=== PATIENT | female | born 1980 | race Caucasian/White ===

== ENCOUNTER 2016-03-24 23:00 | Inpatient (IN) | payer BC ==
[2016-03-25] MEDS ORDERED: TERBUTALINE SULFATE 1 MG/ML VIAL IV PRN (00:12)
[2016-03-25] MEDS ORDERED: OXYTOCIN/RINGERS LACTATE 1,000 ML IV PRN (00:12)
[2016-03-25] MEDS ORDERED: LIDOCAINE 1% 30 ML SDV SC PRN (00:12)
[2016-03-25] MEDS ORDERED: MINERAL OIL 60 ML OIL TP PRN (00:12)
[2016-03-25 00:53] LABS: % IMMATURE GRANULYOCYTES 0.7 % (0.0-1.1); ABSOLUTE IMMATURE GRANULOCYTES 0.13 10^3/uL (0.00-0.10); ADD DIFF? NO; ADD MORPH? NO; ADD SCAN? NO; ATYPICAL LYMPHOCYTE FLAG 0 (0-99); FRAGMENT RBC FLAG 0 (0-99); HEMATOCRIT 39.9 % (38.0-47.0); HEMOGLOBIN 13.8 g/dL (12.6-16.3); LEFT SHIFT FLG 0 (0-99); LIPEMIA HEMOLYSIS FLAG 90 (0-99); MEAN CELL HEMOGLOBIN 29.2 pg (27.9-34.1); MEAN CELL HEMOGLOBIN CONCENTR. 34.6 g/dL (32.4-36.7); MEAN CELL VOLUME 84.5 fL (81.5-99.8); MEAN PLATELET VOLUME 11.2 fL (8.7-11.7); PLATELET CLUMPS FLAG 0 (0-99); PLATELET COUNT 196 10^3/uL (150-400); RED BLOOD CELL COUNT 4.72 10^6/uL (4.18-5.33); RED CELL DISTRIBUTION WIDTH 13.8 % (11.5-15.2)
[2016-03-25] MEDS ORDERED: ceFAZolin 2 GM/DEXTROSE 100 ML IV ONE (01:00)
[2016-03-25] MEDS: LR 1,000 ML IV PRN ×2 (01:15→05:54)
[2016-03-25 01:39] LABS: ALANINE AMINOTRANSFERASE 29 IU/L (9-52); ASPARTATE AMINOTRANSFERASE 22 IU/L (14-46); BILIRUBIN,TOTAL 0.4 mg/dL (0.1-1.4); BILIRUBIN-CONJUGATED 0.3 mg/dL (0.0-0.5); BILIRUBIN-UNCONJUGATED 0.1 mg/dL (0.0-1.1); CREATININE 0.6 mg/dL (0.6-1.0); GLOMERULAR FILTRATION RATE > 60; LACTATE DEHYDROGENASE 548 IU/L (313-618); URIC ACID 4.5 mg/dL (2.5-6.8)
[2016-03-25] MEDS ORDERED: BUPIVACAINE 0.25% 30 ML SDV SC ONE (04:27)
[2016-03-25] MEDS ORDERED: fentaNYL 2MCG/ML/BUP 0.1% RTU 100 ML EP SCH (04:30)
[2016-03-25] MEDS ORDERED: PHENYLEPHRINE HCL 100 MCG/ML SYR IVP PRN (04:30)
[2016-03-25] MEDS ORDERED: ONDANSETRON 4 MG/2 ML VIAL IVP PRN (04:30)
[2016-03-25] MEDS ORDERED: NALOXONE HCL 0.4 MG/ML INJ IVP PRN (04:30)
[2016-03-25] MEDS ORDERED: BUPIVACAINE 0.25% 30 ML SDV ONE (04:41)
[2016-03-25] MEDS ORDERED: fentaNYL 100 MCG/2 ML INJ ONE (04:42)
[2016-03-25] MEDS ORDERED: fentaNYL 2MCG/ML/BUP 0.1% RTU 100 ML BAG EP ONE (04:42)
[2016-03-25] MEDS ORDERED: PHENYLEPHRINE HCL 100 MCG/ML SYR ONE ×2 (04:43→13:55)
[2016-03-25] MEDS ORDERED: fentaNYL 100 MCG/2 ML INJ IVP ONE (05:00)
[2016-03-25] MEDS ORDERED: LR 500 ML IV SCH (05:00)
--- NOTE | 2016-03-25 07:34 | OBPROG ---
OBG Progress Note Assessment/Plan: Assessment: 35 y/o at 40+6 weeks EGA admitted with SROM and in active labor Plan: 1) status over all reassuring - mild variables w/ pushing 2) Labor - progressed well now to C/C/+1. Anterior lip from 0630 is gone. Baby 's position has changed from ROT to direct OP. Did a trial push, and minimal decent noted, likely from dense epidural. Will allow to labor down for an hour and then will reassess and like start pushing. Will have CNM cover while I'm in the OR. 3) GBS + on ancef. 4) Pain relieved well w/ UZIEL 03/25/16 07:30 Subjective: Pt comfortable with UZIEL. She reports feeling a little pressure with contractions. Objective: 03/24/16 23:50 03/24/16 23:50 Patient ABO/Rh A POSITIVE 03/24/16 23:50 Uric Acid 4.5 mg/dL (2.5-6.8) 03/24/16 23:50 Total Bilirubin 0.4 mg/dL (0.1-1.4) 03/24/16 23:50 Conjugated Bilirubin 0.3 mg/dL (0.0-0.5) 03/24/16 23:50 Unconjugated Bilirubin 0.1 mg/dL (0.0-1.1) 03/24/16 23:50 AST 22 IU/L (14-46) 03/24/16 23:50 ALT 29 IU/L (9-52) 03/24/16 23:50 Lactate Dehydrogenase 548 IU/L (313-618) 03/24/16 23:50 - SVE Dilation (cm): 10 Effacement (%): 100 Station: +1 Current Contraction Pattern: Regular FHR (bpm): 145 FHR Pattern Variability: Moderate FHR Category: 2 (variable decel w/ pushing attempt) Membranes: SROM Amniotic Fluid Color: Clear ICD10 Worksheet Patient Problems: Problems Problem Status Diagnosed Labor established Acute - ICD10 Problem Qualifiers (1) Labor established
--- NOTE | 2016-03-25 07:41 | GHP ---
[f rep st] HISTORY AND PHYSICAL DATE OF ADMISSION: 03/24/2016 CHIEF COMPLAINT: Leakage of fluid. HISTORY OF PRESENT ILLNESS: The patient is a 35-year-old, 1, para 0, female at 40 weeks and 6 days on admission with complaints of spontaneous leakage of fluid that started at 8:30 p.m. on the day of admission. She reports the fluid was clear. She was admitted to Labor and Delivery and monit ored expectantly by our certified nurse wine pasteurizer, Jana Perez. The patient's cervix was check ed around 2:45 and noted to be 5-6 cm dilated, 80% effaced, and -1 station. The patient continued to labor in the tub and progressed to 6-7 cm at 4:15 a.m. She requested an epidural at that time, and continuous monitoring was initiated. I was contacted at 5:30 to come into Labor and delivery as the patient had progressed to 8 cm. Upon my arrival to Labor and delivery, it was apparent she had some decelerations noted with hypotension t hat occurred after placement of her epidural as well as 1 dose of fentanyl. The heart rate sta tus is currently reassuring with a baseline of 140s, moderate variability present and spontaneous acc elerations. Her cervix was checked and noted to have a really soft anterior lip, completely effaced, and 0 to +1 station with the baby in ROT position. PAST MEDICAL HISTORY: Migraines. PAST SURGICAL HISTORY: Delmar teeth. ALLERGIES: Penicillin. SOCIAL HISTORY: Patient is and reports occasional marijuana use and alcohol use during the p regnancy with a frequency of half a glass a wine once a month. MEDICATIONS: vitamin, DHA. OB PROBLEM LIST: 1. Vaccines: Status post the Tdap vaccine. Declined the flu vaccine. 2. Genetic screening: Sequential screen was normal, NT ultrasound normal, declined CF screening, no rmal anatomy scan. 3. GBS bacteria: Penicillin allergy with hives. The urine culture showed the GBS was pansensitive; however, repeat sensitivities at 35 weeks showed it was resistant to clindamycin so, Ancef was given since her allergy was only a rash. LABS: Blood type A positive, antibody screen negative, varicella immune, rubella immune, RPR nonreac tive, urine culture negative, hepatitis B surface antigen negative, HIV negative, 1-hour GTT normal, 28-week hematocrit 37, and GBS positive. heart rate tracing baseline 145-150 with moderate variability and accelerations present. Occas ional mild variable deceleration noted. Excellent scalp stim with accelerations in the 180s noted wi th her vaginal exam. Prior to my arrival, the patient did have a prolonged deceleration to the 80s f or 2-1/2 minutes after administration of her epidural at 5:23. She had one more recurrent late decel eration at 5:34 for 2 minutes. After position changes, the decelerations resolved and currently she is not showing any decelerations. Tocometer contractions every 45 minutes. PHYSICAL EXAMINATION: GENERAL: Patient is very sleepy and comfortable with her epidural. CHEST: C lear to auscultation bilaterally. CARDIOVASCULAR: Regular rate and rhythm. ABDOMEN: Gravid and no ntender. CERVIX: Soft anterior lip, completely effaced and 0 station. ASSESSMENT: Patient is a 35-year-old, 1, para 0, female at 40 weeks and 6 days now estimated gestational age in active labor with spontaneous rupture of membranes. PLAN: 1. status is currently reassuring. 2. Labor has been progressing well spontaneously; however, currently due to the patient's status wit h her epidural just placed and inability to feel any pressure or contractions in addition to the baby 's occiput transverse position, we will allow for more passive descent before we initiate pushing. 3. Pain well controlled currently with epidural. 4. GBS positive, status post Ancef. /[id number]/MODL
--- NOTE | 2016-03-25 08:41 | OBPROG ---
OBG Progress Note Assessment/Plan: Assessment: 35 y.o. at 40 6/7 weeks with SROM and active labor. Adequate progression of labor. GBS positive. VSS- afebrile. NST- reactive CAT I. Plan: Will begin actively pushing and anticipate . GBS positive with prophylaxis started with Ancef 2 gm, then 1 gm Q8H. 03/25/16 08:37 Subjective: Resting comfortably in bed with UZIEL infusing. and metal fitters and machinists present at bedside and supportive. VSS- afebrile. NST- reactive CAT I. Objective: 03/24/16 23:50 03/24/16 23:50 Patient ABO/Rh A POSITIVE 03/24/16 23:50 Uric Acid 4.5 mg/dL (2.5-6.8) 03/24/16 23:50 Total Bilirubin 0.4 mg/dL (0.1-1.4) 03/24/16 23:50 Conjugated Bilirubin 0.3 mg/dL (0.0-0.5) 03/24/16 23:50 Unconjugated Bilirubin 0.1 mg/dL (0.0-1.1) 03/24/16 23:50 AST 22 IU/L (14-46) 03/24/16 23:50 ALT 29 IU/L (9-52) 03/24/16 23:50 Lactate Dehydrogenase 548 IU/L (313-618) 03/24/16 23:50 - SVE Dilation (cm): 10 Effacement (%): 100 Station: +1 Current Contraction Pattern: Regular FHR (bpm): 140 FHR Pattern Variability: Moderate FHR Category: 1 Membranes: SROM Amniotic Fluid Color: Clear - Physical Exam General Appearance: WD/WN, alert, no apparent distress Estimated Weight: 9990-1022 EENT: normal ENT inspection Neck: non-tender, full range of motion Respiratory: lungs clear, normal breath sounds Cardiac/Chest: regular rate, rhythm Abdomen: non-tender, soft Membranes: SROM Amniotic Fluid Color: clear Extremities: normal range of motion, non-tender, normal inspection Back: Normal inspection Skin: normal color, warm/dry Neuro/Psych: alert, normal mood/affect, oriented x 3 ICD10 Worksheet Patient Problems: Problems Problem Status Diagnosed Labor established Acute
--- NOTE | 2016-03-25 10:06 | OBPROG ---
OBG Progress Note Assessment/Plan: Assessment: 35 y/o at 40+6 weeks EGA admitted with SROM and in active labor Plan: 1) status over all reassuring - mild variables w/ pushing, moderate variability present, baseline 150-160's with intermittent period in the 170s. Over all reassuring. Discussed how the fluid is now meconium stained. Discussed risk of intervening sooner if needed for any sign of NRFHT. status currently reassuring. 2) Labor - Pt pushing, just started about 0930, still in direct OP position. Pushed with the patient with good efforts noted. Will reevaluate in one hour. 3) GBS + on ancef. 4) Pain relieved well w/ UZIEL 03/25/16 10:03 Subjective: Pt pushing Objective: 03/24/16 23:50 03/24/16 23:50 Patient ABO/Rh A POSITIVE 03/24/16 23:50 Uric Acid 4.5 mg/dL (2.5-6.8) 03/24/16 23:50 Total Bilirubin 0.4 mg/dL (0.1-1.4) 03/24/16 23:50 Conjugated Bilirubin 0.3 mg/dL (0.0-0.5) 03/24/16 23:50 Unconjugated Bilirubin 0.1 mg/dL (0.0-1.1) 03/24/16 23:50 AST 22 IU/L (14-46) 03/24/16 23:50 ALT 29 IU/L (9-52) 03/24/16 23:50 Lactate Dehydrogenase 548 IU/L (313-618) 03/24/16 23:50 - SVE Dilation (cm): 10 Effacement (%): 100 Station: +1 - Physical Exam Estimated Weight: 1176-1976 ICD10 Worksheet Patient Problems: Problems Problem Status Diagnosed Labor established Acute - ICD10 Problem Qualifiers (1) Labor established
[2016-03-25] MEDS ORDERED: LIDOCAINE 2% 5 ML SDV ONE (12:58)
[2016-03-25] MEDS ORDERED: FAMOTIDINE 20 MG/2 ML SDV IVP ONE ×2 (13:07→13:30)
[2016-03-25] MEDS ORDERED: METOCLOPRAMIDE 10 MG/2 ML VIAL IVP ONE (13:07)
--- NOTE | 2016-03-25 13:11 | OBPROG ---
OBG Progress Note Assessment/Plan: Assessment: 35 y/o at 40+6 weeks EGA admitted with SROM and in active labor Plan: 1) status: concerning w/ tachycardia and now a late decel. Will move towards delivery now. 2) Labor - Arrest of descent. Extensive counseling done about 30 minutes ago w / option of vacuum extraction vs. primary section reviewed. All r/b/i/ a of each option reviewed, and she desires to proceed with C/S. Consent obtained. Will now proceed more urgently due to decels noted. 3) GBS + on ancef. 4) Pain relieved well w/ UZIEL 03/25/16 13:11 Subjective: Pt exhausted with pushing. Objective: 03/24/16 23:50 03/24/16 23:50 Patient ABO/Rh A POSITIVE 03/24/16 23:50 Uric Acid 4.5 mg/dL (2.5-6.8) 03/24/16 23:50 Total Bilirubin 0.4 mg/dL (0.1-1.4) 03/24/16 23:50 Conjugated Bilirubin 0.3 mg/dL (0.0-0.5) 03/24/16 23:50 Unconjugated Bilirubin 0.1 mg/dL (0.0-1.1) 03/24/16 23:50 AST 22 IU/L (14-46) 03/24/16 23:50 ALT 29 IU/L (9-52) 03/24/16 23:50 Lactate Dehydrogenase 548 IU/L (313-618) 03/24/16 23:50 - SVE Dilation (cm): 10 Effacement (%): 100 Station: +2 Current Contraction Pattern: Regular FHR (bpm): 150 FHR Pattern Variability: Minimal FHR Category: 2 - Physical Exam Estimated Weight: 1043-4154 ICD10 Worksheet Patient Problems: Problems Problem Status Diagnosed Labor established Acute - ICD10 Problem Qualifiers (1) Labor established
[2016-03-25] MEDS ORDERED: LIDO/EPI 2% **for epidural** 20 ML SDV ONE (13:12)
[2016-03-25] MEDS ORDERED: DEXAMETHASONE 4 MG/ML VIAL ONE (13:12)
[2016-03-25] MEDS ORDERED: ONDANSETRON 4 MG/2 ML VIAL ONE ×2 (13:12→14:08)
[2016-03-25] MEDS ORDERED: OXYTOCIN 100 UNITS/10 ML VIAL ONE (13:13)
[2016-03-25] MEDS ORDERED: CITRIC ACID/SODIUM CITRATE 30 ML UDCUP ONE (13:15)
[2016-03-25] MEDS ORDERED: FAMOTIDINE 20 MG/NACL/50 ML BAG IV ONE (13:18)
[2016-03-25] MEDS ORDERED: FAMOTIDINE 20 MG/NACL 50 ML IV ONE (13:30)
[2016-03-25] MEDS ORDERED: morphINE PF 5 MG/10 ML INJ ONE (13:49)
[2016-03-25] MEDS ORDERED: epHEDrine SULFATE 10 MG/ML SYR ONE (14:14)
[2016-03-25] MEDS ORDERED: ACETAMINOPHEN 325 MG TAB PO PRN (14:24)
[2016-03-25] MEDS ORDERED: PROMETHAZINE HCL 25 MG/ML VIAL IVP PRN (14:24)
--- NOTE | 2016-03-25 14:24 | OBPROC ---
- Delivery Pre-op Diagnoses: Failure to progress Post-op Diagnoses: Failure to progress. Meconium stained fluid. Procedure: Primary Surgeon: Ivania Feng Press Reader: Jana Perez Anesthesiologist: Dung Wiggins Wheel Fitter/CONSULTING PROJECT DIRECTOR: Marybeth Meredith Anesthesia: Epidural Complications: None Specimen(s)/Path: Placenta IV Fluid (ml): 2,000 EBL: 1000 - Info A Delivery Date: 03/25/16 Delivery Time: 13:47 Sex of : Male [place] Weight (gm): 3060 kg Score (1 Min): 8 Score (5 Min): 9
[2016-03-25] MEDS ORDERED: MAGNESIUM HYDROXIDE 30 ML UDCUP PO PRN (14:26)
[2016-03-25] MEDS ORDERED: LACTULOSE 20 GM/30 ML UDCUP PO PRN (14:26)
[2016-03-25] MEDS ORDERED: POLYETHYLENE GLYCOL 3350 17 GM PKT PO PRN (14:26)
[2016-03-25] MEDS ORDERED: BISACODYL 10 MG SUPP PR PRN (14:26)
[2016-03-25] MEDS ORDERED: MEPERIDINE 25 MG/ML SYR IVP PRN (14:34)
[2016-03-25] MEDS ORDERED: fentaNYL 100 MCG/2 ML INJ IVP PRN (14:34)
[2016-03-25] MEDS ORDERED: KETOROLAC 30 MG/1 ML SDV ONE (16:05)
[2016-03-25] MEDS: KETOROLAC 30 MG/1 ML SDV IVP SCH ×2 (16:08→22:10)
[2016-03-25] MEDS ORDERED: MINERAL OIL 60 ML OIL TP ONE (17:30)
[2016-03-25] MEDS ORDERED: CITRIC ACID/SODIUM CITRATE 30 ML UDCUP PO SCH (17:30)
[2016-03-26] MEDS: KETOROLAC 30 MG/1 ML SDV IVP SCH ×2 (04:18→10:29)
[2016-03-26 04:40] LABS: % IMMATURE GRANULYOCYTES 0.6 % (0.0-1.1); ADD DIFF? NO; ADD MORPH? NO; ADD SCAN? NO; ATYPICAL LYMPHOCYTE FLAG 0 (0-99); FRAGMENT RBC FLAG 0 (0-99); HEMATOCRIT 33.8 % (38.0-47.0); HEMOGLOBIN 11.2 g/dL (12.6-16.3); LEFT SHIFT FLG 0 (0-99); LIPEMIA HEMOLYSIS FLAG 80 (0-99); MEAN CELL HEMOGLOBIN 29.6 pg (27.9-34.1); MEAN CELL HEMOGLOBIN CONCENTR. 33.1 g/dL (32.4-36.7); MEAN CELL VOLUME 89.4 fL (81.5-99.8); MEAN PLATELET VOLUME 10.4 fL (8.7-11.7); PLATELET CLUMPS FLAG 0 (0-99); PLATELET COUNT 143 10^3/uL (150-400); RED BLOOD CELL COUNT 3.78 10^6/uL (4.18-5.33); RED CELL DISTRIBUTION WIDTH 14.4 % (11.5-15.2)
--- NOTE | 2016-03-26 08:53 | SOAPPROG ---
SOAP Progress Note Assessment/Plan: Assessment: POD#1 s/p pLTCS for FTD at term Meeting appropriate post-operative milestones Rh pos, Rub immune s/p Tdap. Flu declined Plan: SLIV Ambulate D/C milian catheter Regular diet Continue toradol x 24 hours, start [place] this morning Likely home POD#3 03/26/16 08:49 03/26/16 08:52 Subjective: Some sleep overnight. Pain controlled with toradol. Hasn't ambulated. Milian in place. No nausea, had tolerated clears. Started . Has been passing flatus. Objective: Vital Signs Temp Pulse Resp BP Pulse Ox 36.1 C 88 16 102/68 91 L 03/26/16 08:27 03/26/16 08:27 03/26/16 08:27 03/26/16 08:27 03/26/16 08:27 Laboratory Results 03/26/16 04:20 03/24/16 23:50 03/25/16 03/26/16 03/27/16 05:59 05:59 05:59 Intake Total 1900 Output Total 2450 Balance -550 Gen: awake, alert, NAD Resp: normal effort, speaking in full sentences CV: regular rate Abd: soft, moderately distended, appropriately tender Incision: bandage clean/dry Ext: 1+ edema to ankles ICD10 Worksheet Patient Problems: Problems Problem Status Diagnosed Labor established Acute
[2016-03-26 12:36] VITALS: RESP 18
[2016-03-26] MEDS: HYDROCODONE/APAP 5/325 TAB PO PRN ×3 (14:14→22:03)
[2016-03-26] MEDS: DOCUSATE SODIUM 100 MG CAP PO PRN (14:14)
[2016-03-26] MEDS: IBUPROFEN 600 MG TAB PO PRN ×2 (16:31→22:03)
[2016-03-26 21:47] LABS: HEMATOCRIT 32.3 % (38.0-47.0); HEMOGLOBIN 10.9 g/dL (12.6-16.3); MEAN CELL HEMOGLOBIN CONCENTR. 33.7 g/dL (32.4-36.7); RED BLOOD CELL COUNT 3.63 10^6/uL (4.18-5.33); RED CELL DISTRIBUTION WIDTH 14.6 % (11.5-15.2)
[2016-03-27] MEDS: HYDROCODONE/APAP 5/325 TAB PO PRN ×6 (01:42→23:20)
[2016-03-27] MEDS: IBUPROFEN 600 MG TAB PO PRN ×3 (06:33→19:09)
[2016-03-27 10:11] LABS: CREATININE 0.6 mg/dL (0.6-1.0); GLOMERULAR FILTRATION RATE > 60
[2016-03-27] MEDS ORDERED: IOPAMIDOL (ISOVUE 370) 100 ML BTL IV ONE (10:44)
--- NOTE | 2016-03-27 12:00 | CT ---
CT Pulmonary Angiogram Clinical Indications: Shortness of breath two days . Technique: Thinly collimated multidetector helical CT imaging was performed through the chest while 75 mL Isovue-370 were injected intravenously without complication. The images were then transferred to an independent workstation where multiplanar and three-dimensional reconstructions were performed by the interpreting physician and reviewed at multiple windows. Dose reduction techniques were utiliz ed. Findings Chest: There are small bilateral pleural effusions and lower lobe early consolidative changes bilate rally. Heart size is normal, and there is no pericardial effusion. No adenopathy and no pulmonary ma sses are found. CT Pulmonary Angiogram: No intraluminal filling defects are seen in the pulmonary arterial system to suggest pulmonary embolus. The thoracic aorta has a normal contour without evidence of aneurysm or dissection. Impressions 1. No pulmonary emboli. 2. Bibasilar small effusions and early consolidative changes. Critical results relayed by Dr. Miller to nurse Sandy Cheung, March 27, 2016, 11:53 a.m.
--- NOTE | 2016-03-27 12:55 | OBPROG ---
OBG Progress Note Assessment/Plan: Assessment: 35 y/o POD#2 s/p primary LTCS for arrest of descent - hemodynamically stable Plan: 1) Chest pain/SOB - normal O2 sats, but +tachycardia noted which could be normal for status. But, given the high risk of VTE in the period and atypical symptoms of chest pain, advised proceeding w/ a chest CT to r/o PE. She agrees. Chest CT ordered. Advised continued use of IS 10x/hr while awake. 2) Continue routine postop care 3) RH+, RI 4) Dispo: Possible discharge home tomorrow if all criteria met. F/U in 2 weeks for postop check. Addendum: Pt seen and examined at [address] results returned negative for PE, +atelectasis, so continue IS use. 03/27/16 12:55 Subjective: Pt reports ambulating, voiding spontaneously, passing flatus. She reports having intermittent shortness of breath, worse w/ ambulation, associated with a mid-sternal chest tightness. No other concerns. No leg pain, fevers, chills. Breast feeding progressing. Objective: 03/26/16 21:30 03/27/16 08:45 Patient ABO/Rh A POSITIVE 03/24/16 23:50 Uric Acid 4.5 mg/dL (2.5-6.8) 03/24/16 23:50 Total Bilirubin 0.4 mg/dL (0.1-1.4) 03/24/16 23:50 Conjugated Bilirubin 0.3 mg/dL (0.0-0.5) 03/24/16 23:50 Unconjugated Bilirubin 0.1 mg/dL (0.0-1.1) 03/24/16 23:50 AST 22 IU/L (14-46) 03/24/16 23:50 ALT 29 IU/L (9-52) 03/24/16 23:50 Lactate Dehydrogenase 548 IU/L (313-618) 03/24/16 23:50 Temp Pulse Resp BP Pulse Ox 37 C 101 H 18 112/75 95 03/26/16 12:35 03/26/16 18:45 03/26/16 12:35 03/26/16 12:35 03/26/16 18:45 - Physical Exam General Appearance: WD/WN, alert, no apparent distress Estimated Weight: 9731-5574 Respiratory: lungs clear Cardiac/Chest: regular rate, rhythm Abdomen: normal bowel sounds, soft, other (uterus firm at midline, incision c/d/ i w/ steri strips intact.) ICD10 Worksheet Patient Problems: Problems Problem Status Diagnosed Labor established Acute - ICD10 Problem Qualifiers (1) Labor established
[2016-03-27] MEDS ORDERED: FUROSEMIDE 20 MG TAB PO ONE (13:25)
[2016-03-27 15:36] VITALS: O2SAT 94
[2016-03-27] MEDS: DOCUSATE SODIUM 100 MG CAP PO PRN (19:09)
[2016-03-27 23:13] VITALS: BP 129/84; PULSE 90; TEMP 97.8
[2016-03-27] MEDS: SIMETHICONE 80 MG TAB CHEW PO PRN (23:25)
[2016-03-28] MEDS: IBUPROFEN 600 MG TAB PO PRN ×2 (01:23→09:10)
[2016-03-28] MEDS: HYDROCODONE/APAP 5/325 TAB PO PRN ×2 (05:17→09:11)
--- NOTE | 2016-03-28 08:16 | OBGCSDC ---
General Delivery Information - General Info : 1 Para: 1 Delivery Date: 03/25/16 Delivery Time: 13:47 Delivery Physician/CNM: Ivania Feng Nurse Instructor: Jana Perez Admission Date: 03/24/16 Labs: Patient ABO/Rh A POSITIVE 03/24/16 23:50 Hct 32.3 % (38.0-47.0) L 03/26/16 21:30 - [place] Info A Weight (gm): 3060 kg Sex of : Male Score (1 Min): 8 Score (5 Min): 9 Vaginal - Diagnosis Amniotic Fluid Color: Clear - Delivery IUP (Weeks): 40 6/7 Number of Prior Sections: 0 Indications for Current Section: Arrest of Descent Procedures: LTCS Intra-op Complications: None EBL: 1000 Anesthesia: Epidural Discharge Information - Discharge Information Discharge Medications: Ibuprofen, Iron, Vitamins, Vicodin Complications: LTCS for failure to descend Condition: Good Instruction/Follow Up: Two Weeks Discharge Physician/CNM: Jana Perez Discharge Date: 03/28/16 Dictated: No
[2016-03-28] MEDS: DOCUSATE SODIUM 100 MG CAP PO PRN (09:12)
[2016-03-28] MEDS: SIMETHICONE 80 MG TAB CHEW PO PRN (09:12)
--- NOTE | 2016-03-31 22:25 | GOP ---
[f rep st] OPERATIVE REPORT DATE OF OPERATION: 03/25/2016 SURGEON: Ivania Feng MD TRAFFIC DIRECTOR: Jana Perez CNM ANESTHESIA: Epidural. PREOPERATIVE DIAGNOSIS: 1. Intrauterine at 40 weeks and 6 days estimated gestational age. 2. Spontaneous rupture of membranes. 3. Arrest of descent. 4. tachycardia with decelerations. POSTOPERATIVE DIAGNOSIS: 1. Intrauterine at 40 weeks and 6 days estimated gestational age. 2. Spontaneous rupture of membranes. 3. Arrest of descent. 4. tachycardia with decelerations. PROCEDURE PERFORMED: FINDINGS: 1. Delivered a male infant weighing 3060 g with 's of 8 and 9 in the vertex presentat ion at 1347. 2. Normal uterus, fallopian tubes, and ovaries. ESTIMATED BLOOD LOSS: 1000 cc. INDICATIONS: Patient is a 35-year-old 1, para 0 female who was admitted at 40 weeks and 6 da ys estimated gestational age with spontaneous rupture membranes and in active labor. She progressed spontaneously and quickly to complete dilation, complete effacement, and +1 station. She had passive descent initially to allow for progression in the station since the baby had decelerations wit h pushing, and the patient was very densely numb from her epidural. She then began pushing and had a small amount of descent with pushes noted. However, the baby was in the occiput posterior position. After an awrf-gvy-[id number]-half of pushing, the patient desired to try a trial of manual rotation. The fe luisa head was elevated easily out of the pelvis with this attempt in rotation; however, it would only rotate approximately a quarter turn, and then it quickly resumed back to OP position. The patient st barkley desired to push for 1 more additional hour and since the status was currently reassuring at that time, with moderate variability present, then she was allowed to continue pushing. After an other hour pushing, she was counseled regarding the need for intervention for arrest of descent eithe r with a vacuum-assisted vaginal delivery or a primary delivery. The patient was noted at t hat time to be exhausted, and after discussion of all the risks, benefits, indications, and alternati ves, she desired to proceed with a delivery. She was counseled regarding all the risks and agreed to proceed. While waiting for Anesthesia and Nursing to get ready for the delivery, there wer e 2 late decelerations with tachycardia noted, and therefore the decision was made to proceed u rgently towards delivery, given the meconium-stained fluid, tachycardia, and decelerations. DESCRIPTION OF PROCEDURE: The patient was taken to the operating room where epidural anesthesia was found to be adequate. Patient was prepared and draped in normal sterile fashion in the dorsal supine position with a left tilt. After confirmation of adequate anesthesia and administration of preopera tive antibiotics, a low transverse skin incision was made and carried down to the level of the fascia using the scalpel and Bovie for hemostasis. The fascia was incised in the midline, extended lateral ly bilaterally with the Landers scissors. The fascia was dissected off the rectus muscles superiorly an d inferiorly with the Bovie. The peritoneal cavity was entered bluntly and extended superiorly and i nferiorly. A bladder blade was placed. An incision was made in the vesicouterine peritoneum and extended laterally bilaterally. The bladder was dissected away from the lower uterine segment digitally. A low transverse uterine incision was made, extended digitally. Thick meconium-stained fluid was noted. The baby was delivered atraumatic ally in the vertex presentation and the cord was quickly clamped and cut and the baby was handed off to the waiting nurse practitioner. Spontaneous cry was noted after hand-off of the baby to the pediatric staff. A segment of cord was obtained for cord gases and cord blood was obtained. The placenta was then delivered with uterine massage and was noted to be intact. The uterus was exterio rized in the maternal abdomen and the uterus was wiped with a dry lap sponge to remove all residual m embranes. The uterine incision edges were grasped with O[place]guera clamps. The uterine incision was then closed with a running lock stitch of 0 Monocryl. A second imbricating layer of suture was place d using the same suture. There was a small bit of an extension on the left side which was closed wit h a running locked stitch. Hemostasis was assured. The posterior cul-de-sac was irrigated with copi ous amounts of normal saline and noted to be clear. The uterine tone firmed up with medications. Th e uterus was placed back in the maternal abdomen and the gutters were wiped with moist lap sponges bi laterally. The incision was reexamined and noted to be hemostatic. The rectus muscle surfaces and f ascial surfaces were examined closely and hemostasis was obtained with use of the Bovie. The fascial incision was closed with a running nonlocked stitch of #1 PDS. The subcutaneous tissue was irrigate d with copious amounts of normal saline and hemostasis was assured. The subcutaneous layer was reapp roximated with interrupted stitches of 2-0 Vicryl. The skin was closed with a subcuticular stitch of 4-0 Monocryl. Steri-Strips and a bandage dressing was placed. All sponge, lap, and needle counts were correct x2. The patient was transferred back in stable condi tion. Of note, a vaginal Crede exam was performed prior to transfer and dark blood was cleared from the vaginal vault and uterine tone was excellent. PROCEDURE: Procedure primary low transverse section. COMPLICATIONS: None. DRAINS: Brar to gravity. FLUIDS REPLACED: 2000 cc. URINE OUTPUT: 100 cc. /[id number]/MODL
== END 2016-03-28 12:40 | disposition home or self-care (01) | DRG 766 ==
LOC: FLD 23:00 → OBSVTOIN 23:00 → FLD 03-25 16:56
PROVIDERS: ADMIT Midwife; ATTEND Obstetrics & Gynecology
PROC: 10D00Z1 Extraction of Products of Conception, Low, Open Approach (ICD-10-PCS; principal; 2016-03-25)
DX: O62.2 Other uterine inertia (principal); O76 Abnormality in fetal heart rate and rhythm complicating labor and delivery; O48.0 Post-term pregnancy; O99.820 Streptococcus B carrier state complicating pregnancy; Z22.330 Carrier of Group B streptococcus; Z3A.40 40 weeks gestation of pregnancy; Z37.0 Single live birth
CPT/HCPCS: G0463; J0690; J1100; J1885; J2274; J2370; J2405; J2590; J2765; J3010; Q9967

== ENCOUNTER → 2016-05-30 | Outpatient (CLI) | payer BC | END | disposition home or self-care (01) | LOC: FLACT 09:44 | PROVIDERS: ATTEND Obstetrics & Gynecology | DX: O92.79 Other disorders of lactation (principal) | CPT/HCPCS: G0463 ==

== ENCOUNTER → 2018-03-09 | Outpatient (CLI) | payer BC | LOC: FIMAGING 11:56 | PROVIDERS: ATTEND Obstetrics & Gynecology | DX: O36.62X0 Maternal care for excessive fetal growth, second trimester, not applicable or unspecified (principal); O09.522 Supervision of elderly multigravida, second trimester; O34.219 Maternal care for unspecified type scar from previous cesarean delivery; Z3A.19 19 weeks gestation of pregnancy ==

== ENCOUNTER → 2018-04-08 | Outpatient (CLI) | payer BC | LOC: FIMAGING 09:46 | PROVIDERS: ATTEND Obstetrics & Gynecology | DX: O09.522 Supervision of elderly multigravida, second trimester (principal); Z3A.23 23 weeks gestation of pregnancy ==

== ENCOUNTER → 2018-05-24 | Outpatient (CLI) | payer BC | LOC: FIMAGING 09:58 | PROVIDERS: ATTEND Obstetrics & Gynecology | DX: O09.523 Supervision of elderly multigravida, third trimester (principal); O35.8XX0 Maternal care for other (suspected) fetal abnormality and damage, not applicable or unspecified; O34.219 Maternal care for unspecified type scar from previous cesarean delivery; Z3A.30 30 weeks gestation of pregnancy ==